=== PATIENT | female | born 1945 | race Caucasian/White ===

== ENCOUNTER 2023-10-15 21:46 | Emergency (ER) | payer OTHER ==
[2023-10-15] MEDS ORDERED: ALBUTEROL 2.5 MG/3 ML NEB SOL ONE (23:35)
[2023-10-15] MEDS ORDERED: IPRATROPIUM BROM 0.5MG/2.5ML ONE (23:36)
[2023-10-15] MEDS ORDERED: METHYLPREDNISOLONE 125 MG INJ ONE (23:36)
[2023-10-15 23:45] LABS: Absolute Lymphocytes (CBC) 1.2 K/uL (0.7-4.9); Absolute Monocytes 0.5 K/uL (0.1-1.3); Absolute Neutrophil 5.2 K/uL (1.8-8.0); Basophils % 0.3 % (0-1.3); Hematocrit 28.9 % (36.0-45.0); Hemoglobin 8.8 g/dL (12.0-15.0); MCH 21.8 pg (27.0-35.0); MCHC 30.4 g/dL (32.0-36.0); MCV 71.5 fL (80-100); MPV 8.5 fL (7.6-11.3); Monocytes % 6.8 % (3.3-12.3); Neutrophils % 74.9 % (41.7-73.7); Nucleated Red Blood Cells % 0.1 % (0-0); Platelets 178 thou/uL (152-406); RBC Red Blood Cell Count 4.04 M/uL (3.86-4.86); Red Cell Distribution Width 17.5 % (12.1-15.2)
[2023-10-15 23:56] LABS: PT Prothrombin Time 15.9 SECONDS (9.5-12.5); PTT, Activated Partial Thromb 32.3 SECONDS (24.3-36.9); Protime INR 1.46
[2023-10-16 00:05] LABS: ALT/SGPT 18 U/L (13-56); AST/SGOT 18 U/L (15-37); Albumin 3.1 g/dL (3.4-5.0); Albumin/Globulin Ratio 0.9 (1.1-1.8); Alkaline Phosphatase 65 U/L (45-117); Anion Gap 6.8 mEq/L (5.0-15.0); BUN Blood Urea Nitrogen 26 mg/dL (7-18); Bicarbonate 28 mEq/L (21-32); Bilirubin Total 0.3 mg/dL (0.2-1.0); Globulin 3.6 g/dL (2.3-3.5); Glomerular Filtration Rate 35 ml/min (=/>90); Glucose Level 172 mg/dL (74-106); Magnesium 2.2 mg/dL (1.6-2.4); NT PRO-BNP 775 pg/mL (<450); Potassium 4.8 mEq/L (3.5-5.1); Protein, Total 6.7 g/dL (6.4-8.2); Sodium Level 139 mEq/L (136-145); Troponin High Sensitivity 4.1 pg/mL (<58.9)
[2023-10-16 00:21] LABS: Bilirubin Direct < 0.1 mg/dL (0-0.2); Bilirubin Indirect, Calculated ND mg/dL (0.2-0.8)
[2023-10-16] MEDS ORDERED: NA CHLORIDE 0.9% 1,000 ML ONE (00:38)
--- NOTE | 2023-10-16 01:07 | ER ---
Nurse's Notes [facility] Name: Aleyda Cruz Age: 78 yrs Sex: Female : 1945 Arrival Date: 10/15/2023 Time: 21:46 Bed 14 Private MD: Diagnosis: Unspecified asthma with (acute) exacerbation;Nondisplaced fracture of lateral malleolus of right fibula Presentation: 10/14 22:05 Chief complaint: Patient states: I have had a persistent cough and feel like something jb4 is in my chest. I cannot catch my breath and I fell yesterday and hurt my right ankle. Coronavirus screen: At this time, the client does not indicate any symptoms associated with coronavirus-19. Ebola Screen: No symptoms or risks identified at this time. Initial Sepsis Screen: Does the patient meet any 2 criteria? No. Patient's initial sepsis screen is negative. Does the patient have a suspected source of infection? No. Patient's initial sepsis screen is negative. Risk Assessment: Do you want to hurt yourself or someone else? Patient reports no desire to harm self or others. Onset of symptoms was October 15, 2023. Transition of care: patient was not received from another setting of care. 22:05 Method Of Arrival: Ambulatory jb4 22:05 Acuity: EARNEST 3 jb4 Triage Assessment: 22:07 General: Appears in no apparent distress. uncomfortable, Behavior is calm, cooperative, jb4 appropriate for age. Pain: Complains of pain in right foot Pain does not radiate. Pain currently is 10 out of 10 on a pain scale. Neuro: Level of Consciousness is awake, alert, obeys commands, Oriented to person, place, time, situation. Cardiovascular: Patient's skin is warm and dry. Respiratory: Reports shortness of breath at rest Airway is patent Respiratory effort is even, unlabored, Respiratory pattern is regular, symmetrical, Onset: The symptoms/episode began/occurred gradually, the patient has mild shortness of breath. Derm: Skin is intact, Skin is pink, warm \T\ dry. Musculoskeletal: Circulation, motion, and sensation intact. Range of motion: intact in all extremities. Historical: - Allergies: 22:07 Aspirin; jb4 22:07 Sulfa (Sulfonamide Antibiotics); jb4 - PMHx: 22:07 Asthma; Hypertension; GERD; Hypothyroidism; jb4 - PSHx: 22:07 right arm (Hypothyroidism); head (Hypothyroidism); tubal (Hypothyroidism); bladder jb4 suspension (Hypothyroidism); - Immunization history:: Adult Immunizations up to date. - Infectious Disease History:: Denies. - Social history:: Smoking status: Patient denies any tobacco usage or history of. Screenin:44 [facility] [place] ED Fall Risk Assessment (Adult) History of falling in the last 3 months, me1 including since admission No falls in past 3 months (0 pts) Confusion or Disorientation No (0 pts) Intoxicated or Sedated No (0 pts) Impaired Gait No (0 pts) Mobility Assist Device Used No (0 pt) Altered Elimination No (0 pt) Score/Fall Risk Level 0 - 2 = Low Risk Maintained a safe environment, Hourly rounding (assess needs \T\ fall precautionary measures) done, Used ambulatory aids as needed (educated on \T\ assisted with). [facility] ED Fall Risk Assessment (Adult) History of falling in the last 3 months, including since admission. Abuse screen: Denies threats or abuse. Nutritional screening: No deficits noted. Tuberculosis screening: No symptoms or risk factors identified. Assessment: 23:44 General: Appears uncomfortable, well groomed, well developed, well nourished, Behavior me1 is calm, cooperative, appropriate for age, Reports I have had a persistent cough and feel like something is in my chest. I cannot catch my breath and I fell yesterday and hurt my right ankle. Pain: Complains of pain in right foot Pain does not radiate. Pain currently is 8 out of 10 on a pain scale. Quality of pain is described as sharp, Pain began suddenly, 1 day ago. Is continuous. Neuro: Level of Consciousness is awake, alert, obeys commands, Oriented to person, place, time, situation, Appropriate for age. Cardiovascular: Capillary refill < 3 seconds Patient's skin is warm and dry. Respiratory: Airway is patent Respiratory effort is even, unlabored, Respiratory pattern is regular, symmetrical. Respiratory: Reports cough that is persistent since 8 weeks Breath sounds with wheezes bilaterally. GI: No signs and/or symptoms were reported involving the gastrointestinal system. : No signs and/or symptoms were reported regarding the genitourinary system. EENT: No signs and/or symptoms were reported regarding the EENT system. Derm: Skin is intact, is healthy with good turgor, Skin is pink, warm \T\ dry. Musculoskeletal: Swelling present in right foot. Injury Description: fell yesterday from standing position and injured right foot/ankle. 23:51 Cardiovascular: Rhythm is atrial fibrillation. me1 Vital Signs: 22:05 BP 135 / 74; Pulse 92; Resp 20; Temp 98.3; Pulse Ox 96% on R/A; Weight 76.2 kg (R); jb4 Height 5 ft. 4 in. (R); Pain 10/10; 22:15 BP 124 / 94; Pulse 91; Resp 18; Pulse Ox 96% on R/A; me1 23:49 BP 140 / 85; Pulse 83; Resp 19; Pulse Ox 100% on R/A; me1 04 01:23 BP 143 / 86; Pulse 82; Resp 16; Temp 98; Pulse Ox 98% ; Pain 0/10; ha1 10/14 22:05 Body Mass Index 28.84 (76.20 kg, 162.56 cm) 4 10/14 22:05 Pain Scale: Adult 4 10/15 01:23 Pain Scale: Adult ha1 ED Course: 10/14 21:54 Patient arrived in ED. ra3 21:55 Lucila Mon PA-C is PHCP. sb4 21:55 Titi Urbina MD is Attending Physician. sb4 22:07 Triage completed. jb4 22:07 Arm band placed on right wrist. jb4 22:35 Elizabeth Lopez, JASMYN is Primary Nurse. me1 23:00 XRAY CXR (1 view) In Process Unspecified. EDMS 23:00 Ankle Right 3 View XRAY In Process Unspecified. EDMS 23:27 Initial lab(s) drawn, by az, sent to lab. First set of blood cultures drawn by az, me1 Second set of blood cultures drawn by az. 23:30 Inserted saline lock: 22 gauge in left antecubital area, using aseptic technique. me1 23:33 BMP Sent. me1 23:33 Blood Culture Adult (2) Sent. me1 23:33 CBC with Diff Sent. me1 23:33 Hepatic Function Sent. me1 23:33 Magnesium Sent. me1 23:33 NT PRO-BNP Sent. me1 23:33 PT-INR Sent. me1 23:33 Ptt, Activated Sent. me1 23:33 Troponin HS Sent. me1 23:44 Patient has correct armband on for positive identification. Bed in low position. Call me1 light in reach. Side rails up X2. Provided Education on: POC. Verbalized understanding. . 23:44 No provider procedures requiring assistance completed. me1 23:51 EKG done, by ED staff, reviewed by Lucila Mon PA-C. az1 10/15 01:07 Javon Parnell MD is Referral Physician. sb4 01:30 intact, bleeding controlled, No redness/swelling at site. Pressure dressing applied. ha1 Administered Medications: 10/14 23:43 Drug: MethylPrednisoLONE IVP 125 mg IVP once Route: IVP; Site: left antecubital; me1 23:50 Follow up: Response: No adverse reaction me1 23:43 Drug: DuoNeb Nebulize (3:1) (2.5 mg - 0.5 mg) 3 ml Nebulizer once Route: Nebulizer; me1 23:51 Follow up: Response: No adverse reaction; Wheezing diminished me1 10/15 00:48 Drug: NS 0.9% IV 1000 ml IV at 1 bolus Per protocol; 1000 mL bolus Route: IV; Rate: 1 ha1 bolus; Site: left antecubital; 01:32 Follow up: Response: No adverse reaction; IV Status: Completed infusion; IV Intake: ha1 1000ml Medication: 10/14 23:44 VIS not applicable for this client. az1 Intake: 10/15 01:32 IV: 1000ml; Total: 1000ml. 1 Outcome: 01:07 Discharge ordered by . sb4 01:30 Condition: stable ha1 01:30 Discharge instructions given to patient, family, Instructed on discharge instructions, follow up and referral plans. Demonstrated understanding of instructions, follow-up care, medications, Prescriptions given X 1, 01:31 Discharged to home via wheelchair, ha1 01:33 Patient left the ED. ha1 Signatures: Dispatcher [employer] EDToño Rodriguez RN RN [email or web address] Pippa Avalos RN RN [email or web address] Lucila Mon PA-C PA-C sb4 Elizabeth Lopez RN RN az1 Laine Collado ra3 Corrections: (The following items were deleted from the chart) 10/14 23:44 22:05 Chief complaint: Patient states: I have had a persistent cough and feel like me1 something is in my chest. I cannot catch my breath and I fell yesterday and hurt my right ankle. jb4
--- NOTE | 2023-10-16 01:08 | EDPHYS ---
Physician Documentation [facility] Name: Aleyda Cruz Age: 78 yrs Sex: Female : 1945 Arrival Date: 10/15/2023 Time: 21:46 Bed 14 Private MD: ED Physician Titi Urbina HPI: 10/14 22:37 This 78 yrs old Female presents to ER via Ambulatory with complaints of Shortness Of sb4 Breath, Fall Injury, Ankle Injury, Cough. 10/15 00:08 patient reports feeling short of breath for a few months now, ever since she was 1 week sb4 late receiving her asthma injection. states that at the time, she was given an IV steroid shot and put on antibiotics. reports initially improved but has slowly gotten worse- shortness of breath and wheezing despite inhalers. additionally, states that yesterday she twisted her right ankle and fell and now reports pain, swelling, and tenderness to the area. Historical: - Allergies: 10/14 22:07 Aspirin; jb4 22:07 Sulfa (Sulfonamide Antibiotics); jb4 - PMHx: 22:07 Asthma; Hypertension; GERD; Hypothyroidism; jb4 - PSHx: 22:07 right arm (Hypothyroidism); head (Hypothyroidism); tubal (Hypothyroidism); bladder jb4 suspension (Hypothyroidism); - Immunization history:: Adult Immunizations up to date. - Infectious Disease History:: Denies. - Social history:: Smoking status: Patient denies any tobacco usage or history of. ROS: 10/15 00:08 Constitutional: Negative for fever, chills, and weight loss, sb4 Respiratory: Positive for cough, dyspnea on exertion, shortness of breath, wheezing, MS/extremity: Positive for injury or acute deformity, pain, swelling, tenderness, of the right ankle and anterior aspect of right ankle, All other systems are negative, Exam: 00:08 Constitutional: This is a well developed, well nourished patient who is awake, alert, sb4 and in no acute distress. Head/Face: Normocephalic, atraumatic. Eyes: Extra-ocular motions intact. Periorbital areas with no swelling, redness, or edema. ENT: Mucous membranes moist. Cardiovascular: Regular rate and rhythm with a normal S1 and S2. Abdomen/GI: Soft, non-tender, no distension. Skin: Warm, dry with normal turgor. Normal color with no rashes, no lesions, and no evidence of cellulitis. Neuro: Awake and alert, GCS 15, oriented to person, place, time, and situation. Motor strength 5/5 in all extremities. Sensory grossly intact. 00:08 Respiratory: the patient does not display signs of respiratory distress, Respirations: normal, Breath sounds: wheezing: inspiratory expiratory that is moderate, is scattered, 00:08 Musculoskeletal/extremity: Extremities: noted in the right ankle: pain, swelling, tenderness, ROM: limited active range of motion due to pain, limited passive range of motion due to pain, Circulation is intact in all extremities. Sensation intact. Vital Signs: 10/14 22:05 BP 135 / 74; Pulse 92; Resp 20; Temp 98.3; Pulse Ox 96% on R/A; Weight 76.2 kg (R); jb4 Height 5 ft. 4 in. (R); Pain 10/10; 22:15 BP 124 / 94; Pulse 91; Resp 18; Pulse Ox 96% on R/A; me1 23:49 BP 140 / 85; Pulse 83; Resp 19; Pulse Ox 100% on R/A; me1 04 01:23 BP 143 / 86; Pulse 82; Resp 16; Temp 98; Pulse Ox 98% ; Pain 0/10; ha1 10/14 22:05 Body Mass Index 28.84 (76.20 kg, 162.56 cm) jb4 10/14 22:05 Pain Scale: Adult jb4 10/15 01:23 Pain Scale: Adult ha1 MDM: 10/14 22:05 Patient medically screened. sb4 10/15 01:06 Antibiotic administration: Not indicated, the patient's primary pathology is reactive sb4 airway disease. Data reviewed: vital signs, nurses notes, lab test result(s), EKG, radiologic studies, and as a result, I will discharge patient. Counseling: I had a detailed discussion with the patient and/or guardian regarding the historical points, exam findings, and any diagnostic results supporting the discharge/admit diagnosis, lab results, radiology results, the need for outpatient follow up, a surg tech, to return to the emergency department if symptoms worsen or persist or if there are any questions or concerns that arise at home. 10/14 22:26 Order name: BMP; Complete Time: 00:22 sb4 10/14 22:26 Order name: Blood Culture Adult (2) sb4 10/14 22:26 Order name: CBC with Diff; Complete Time: 23:58 sb4 10/14 22:26 Order name: Hepatic Function; Complete Time: 00:22 sb4 10/14 22:26 Order name: Magnesium; Complete Time: 00:22 sb4 10/14 22:26 Order name: NT PRO-BNP; Complete Time: 00:22 sb4 10/14 22:26 Order name: PT-INR; Complete Time: 23:58 sb4 10/14 22:26 Order name: Ptt, Activated; Complete Time: 23:58 sb4 10/14 22:26 Order name: Troponin HS; Complete Time: 00:22 sb4 10/14 22:26 Order name: XRAY CXR (1 view) sb4 10/14 22:26 Order name: Ankle Right 3 View XRAY sb4 10/14 22:26 Order name: EKG; Complete Time: 22:26 sb4 10/14 22:26 Order name: Cardiac monitoring; Complete Time: 00:15 sb4 10/14 22:26 Order name: EKG - Nurse/Tech; Complete Time: 23:52 sb4 10/14 22:26 Order name: IV Saline Lock; Complete Time: 23:33 sb4 10/14 22:26 Order name: Labs collected and sent; Complete Time: 23:33 sb4 10/14 22:26 Order name: O2 Per Protocol; Complete Time: 23:33 sb4 10/14 22:26 Order name: O2 Sat Monitoring; Complete Time: 23:33 sb4 10/15 00:48 Order name: Walking boot; Complete Time: 01:23 sb4 EC/18 23:53 Rate is 80 beats/min. Rhythm is irregularly irregular, A fib. QRS interval is normal at sb4 78 msec. QT interval is normal at 374 msec. No Q waves. T waves are Normal. No ST changes noted. Clinical impression: Atrial Fibrillation. Interpreted by me. Reviewed by me. Administered Medications: 23:43 Drug: MethylPrednisoLONE IVP 125 mg IVP once Route: IVP; Site: left antecubital; me1 23:50 Follow up: Response: No adverse reaction me1 23:43 Drug: DuoNeb Nebulize (3:1) (2.5 mg - 0.5 mg) 3 ml Nebulizer once Route: Nebulizer; wi1 23:51 Follow up: Response: No adverse reaction; Wheezing diminished me1 10/15 00:48 Drug: NS 0.9% IV 1000 ml IV at 1 bolus Per protocol; 1000 mL bolus Route: IV; Rate: 1 ha1 bolus; Site: left antecubital; 01:32 Follow up: Response: No adverse reaction; IV Status: Completed infusion; IV Intake: ha1 1000ml Disposition Summary: 10/16/23 01:07 Discharge Ordered Notes: Location: Home sb4 Problem: new sb4 Symptoms: have improved sb4 Condition: Stable sb4 Diagnosis - Unspecified asthma with (acute) exacerbation sb4 - Nondisplaced fracture of lateral malleolus of right fibula sb4 Followup: sb4 - With: Javon Parnell MD - When: As needed - Reason: Recheck today's complaints, Re-evaluation by your physician Discharge Instructions: - Discharge Summary Sheet sb4 - Asthma, Adult sb4 - Nondisplaced Fibular Ankle Fracture Treated With Immobilization sb4 Forms: - Thank You Letter sb4 - Patient Portal Instructions sb4 - Leadership Thank You Letter sb4 Prescriptions: - Prednisone 20 mg Oral Tablet - take 2 tablets ORAL route once daily for 5 days; 10 tablet; Refills: 0, Product sb4 Selection Permitted Addendum: 10/17/2023 06:07 I was immediately available for consultation during this patient's visit. I did not e c2 personally see the patient or discuss the patient with the PERNELL. . Signatures: Dispatcher [employer] Toño Garcia RN RN [email or web address] Pippa Avalos RN RN ha1 Lucila Mon PA-C PAGaudencio sb4 Elizabeth Lopez RN RN me1 Titi Urbina MD MD ec2 Corrections: (The following items were deleted from the chart) 10/14 22:26 22:26 BASIC METABOLIC PANEL+C.LAB.BRZ ordered. EDMS EDMS 22: 22:26 BLOOD CULTURE*+BA.LAB.BRZ ordered. EDMS EDMS 22: 22:26 CBC+H.LAB.BRZ ordered. EDMS EDMS 22: 22:26 HEPATIC FUNCTION+C.LAB.BRZ ordered. EDMS EDMS 22: MAGNESIUM+C.LAB.BRZ ordered. EDMS EDMS : 22:26 PROBNP+C.LAB.BRZ ordered. EDMS EDMS 22: PROTIME (+INR)+COAG.LAB.BRZ ordered. EDMS EDMS 22: PTT, ACTIVATED+COAG.LAB.BRZ ordered. EDMS EDMS 22: Troponin High Sensitivity+C.LAB.BRZ ordered. EDMS EDMS 22: Ankle Right 3 View+RAD.RAD.BRZ ordered. EDMS EDMS
[2023-10-16 09:21] VITALS: BP 143/86; TEMP 98; O2SAT 98
--- NOTE | 2023-10-17 20:01 | RAD REPORT ---
EXAM DESCRIPTION: RAD - Ankle Right 3 View - 10/15/2023 10:59 pm CLINICAL HISTORY: 78-year-old female with pain. TECHNIQUE: Three views RIGHT ankle were obtained in AP, lateral and oblique projections. COMPARISON: None. FINDINGS: Transverse fracture through the distal lateral malleolus. Ossicle medial to the lateral ma lleolus may reflect talar process fracture. The joint spaces are preserved. Bimalleolar soft tissue s welling. Plantar heel spur. Calcaneal enthesophyte. IMPRESSION: 1. Transverse fracture through the distal lateral malleolus. 2. Suspected lateral talar process fracture. 3. Ankle soft tissue swelling. Electronically signed by: Karla Ojeda MD 10/15/2023 11:17 PM CDT Due to temporary technical issues with the PACS/Fluency reporting system, reports are being signed by the in house radiologists without review as a courtesy to insure prompt reporting. The interpreting radiologist is fully responsible for the content of the report.
--- NOTE | 2023-10-17 20:12 | RAD REPORT ---
EXAM DESCRIPTION: RAD - Chest Single View - 10/15/2023 10:59 pm CLINICAL HISTORY: 8 years Female, SOB COMPARISON: Chest radiograph dated 01/23/2020 IMPRESSION: No focal lung consolidation. No pleural effusion. No pneumothorax. Cardiomegaly and vascular congestion. Remote fracture deformity of the right humerus Electronically signed by: Levi Stephens DO 10/15/2023 11:15 PM CDT Due to temporary technical issues with the PACS/Fluency reporting system, reports are being signed by the in house radiologists without review as a courtesy to insure prompt reporting. The interpreting radiologist is fully responsible for the content of the report.
== END 2023-10-16 01:33 | disposition home or self-care (01) ==
LOC: ER 21:46
DX: J45.901 Unspecified asthma with (acute) exacerbation (principal); S82.64XA Nondisplaced fracture of lateral malleolus of right fibula, initial encounter for closed fracture; Z88.2 Allergy status to sulfonamides; Z88.6 Allergy status to analgesic agent
CPT/HCPCS: 96361; 93005; 87040 ×2; 85025; 80048; 36415; 83735; 85610; 80076; 85730; 84484; 83880; 71045; 73610; 94640; 96374; 99285; J7613; J7644; J2919; J7030

== ENCOUNTER 2023-10-26 11:00 | Emergency (ER) | payer OTHER ==
[2023-10-26 11:46] LABS: Absolute Lymphocytes (CBC) 1.4 K/uL (0.7-4.9); Absolute Monocytes 0.9 K/uL (0.1-1.3); Absolute Neutrophil 8.9 K/uL (1.8-8.0); Basophils % 0.2 % (0-1.3); Hematocrit 30.4 % (36.0-45.0); Hemoglobin 9.1 g/dL (12.0-15.0); Lymphocytes % 12.3 % (15.3-44.8); MCH 21.4 pg (27.0-35.0); MCHC 29.8 g/dL (32.0-36.0); MCV 71.8 fL (80-100); MPV 7.9 fL (7.6-11.3); Monocytes % 7.7 % (3.3-12.3); Neutrophils % 79.8 % (41.7-73.7); Platelets 241 thou/uL (152-406); RBC Red Blood Cell Count 4.23 M/uL (3.86-4.86); Red Cell Distribution Width 18.4 % (12.1-15.2)
[2023-10-26 12:02] LABS: Albumin 2.9 g/dL (3.4-5.0); Albumin/Globulin Ratio 0.9 (1.1-1.8); Anion Gap 6.6 mEq/L (5.0-15.0); Bilirubin Total 0.6 mg/dL (0.2-1.0); Globulin 3.3 g/dL (2.3-3.5); Potassium 4.6 mEq/L (3.5-5.1); Protein, Total 6.2 g/dL (6.4-8.2)
[2023-10-26] MEDS ORDERED: NA CHLORIDE 0.9% 1,000 ML ONE (12:03)
[2023-10-26 12:27] LABS: Anisocytosis 2+; Blood Morphology Comment NOTED (NOT SEEN); Hypochromasia 2+; Platelet Estimate ADEQ; White Blood Cell Scan OK (OK)
--- NOTE | 2023-10-26 12:37 | RAD REPORT ---
EXAM DESCRIPTION: CTAbdomen Pelvis W Contrast - 10/26/2023 12:25 pm CLINICAL HISTORY: Abdominal pain. diarrhea COMPARISON: No comparisons TECHNIQUE: Venous phase CT imaging of the abdomen and pelvis was performed with 100 ml non-ionic IV contrast. All CT scans are performed using dose optimization technique as appropriate and may include automated exposure control or mA/KV adjustment according to patient size. FINDINGS: Mild linear atelectasis is present in the right lung base.Moderate hiatal hernia. The liver demonstrates small cysts. No aggressive liver lesion or biliary dilatation. The spleen panc reas adrenal glands and kidneys are within normal limits. There is a 4.6 cm duodenal diverticulum not ed. No bowel obstruction, free air, free fluid or abscess. Advanced sigmoid diverticulosis coli is presen t without diverticulitis. The appendix is normal. No evidence of significant lymphadenopathy. Mild lumbar degenerative changes. Prominent bone island seen right ischium. IMPRESSION: No acute intra-abdominal or pelvic finding. Moderate hiatal hernia. Significant sigmoid colon diverticulosis without diverticulitis findings.
--- NOTE | 2023-10-26 13:12 | ER ---
Nurse's Notes [facility] Name: Aleyda Cruz Age: 78 yrs Sex: Female : 1945 Arrival Date: 10/26/2023 Time: 11:00 Bed 3 Private MD: Diagnosis: Diarrhea, unspecified Presentation: 10/25 11:12 Chief complaint: Patient states: ate at [facility] on Thursday , started having iw abd pain and then diarrhea after that. Coronavirus screen: Client presents with at least one sign or symptom that may indicate coronavirus-19. Ebola Screen: Patient negative for fever greater than or equal to 101.5 degrees Fahrenheit, and additional compatible Ebola Virus Disease symptoms Patient denies exposure to infectious person. Patient denies travel to an Ebola-affected area in the 21 days before illness onset. No symptoms or risks identified at this time. Initial Sepsis Screen: Does the patient meet any 2 criteria? No. Patient's initial sepsis screen is negative. Does the patient have a suspected source of infection? No. Patient's initial sepsis screen is negative. Risk Assessment: Do you want to hurt yourself or someone else? Patient reports no desire to harm self or others. Onset of symptoms was October 21, 2023. 11:12 Method Of Arrival: Ambulatory iw 11:12 Acuity: EARNEST 3 iw Historical: - Allergies: 11:13 Aspirin; iw 11:13 Sulfa (Sulfonamide Antibiotics); iw - PMHx: 11:13 Hypertension; Hypothyroidism; GERD; Asthma; iw - PSHx: 11:13 head; bladder suspension; right arm; tubal; iw - Immunization history:: Adult Immunizations unknown. - Infectious Disease History:: Denies. - Family history:: not pertinent. - Hospitalizations: : No recent hospitalization is reported. - Social history:: Smoking status: Patient denies any tobacco usage or history of. Screenin:47 [facility] ED Fall Risk Assessment (Adult) History of falling in the last 3 months, ph including since admission No falls in past 3 months (0 pts) Confusion or Disorientation No (0 pts) Intoxicated or Sedated No (0 pts) Impaired Gait No (0 pts) Mobility Assist Device Used No (0 pt) Altered Elimination No (0 pt) Score/Fall Risk Level 0 - 2 = Low Risk Oriented to surroundings, Maintained a safe environment, Provided non-skid footwear, Hourly rounding (assess needs \T\ fall precautionary measures) done. Abuse screen: Denies threats or abuse. Denies injuries from another. Nutritional screening: No deficits noted. Tuberculosis screening: No symptoms or risk factors identified. Assessment: 12:30 General: Appears in no apparent distress. comfortable, well groomed, Behavior is calm, ph cooperative, appropriate for age. Pain: Denies pain. Neuro: Level of Consciousness is awake, alert, obeys commands, Oriented to person, place, time, situation. Cardiovascular: Capillary refill < 3 seconds in bilateral fingers Patient's skin is warm and dry. Respiratory: Airway is patent Respiratory effort is even, unlabored. GI: Abdomen is non-distended, Reports diarrhea, nausea. Derm: Skin is pink, warm \T\ dry. Vital Signs: 11:12 BP 138 / 74; Pulse 72; Resp 16; Temp 98.2; Pulse Ox 95% on R/A; iw 12:30 BP 139 / 72; Pulse 74; Resp 16; Pulse Ox 95% on R/A; ph 13:47 BP 128 / 78; Pulse 64; Resp 18; Temp 98; Pulse Ox 96% on R/A; ph ED Course: 11:03 Patient arrived in ED. rg4 11:05 Jluis Lopez MD is Attending Physician. rn 11:13 Triage completed. iw 11:13 Arm band placed on. iw 11:33 Candy Estes, RN is Primary Nurse. ph 11:51 CBC with Diff Sent. bc6 11:51 CMP Sent. bc6 11:51 Lipase Sent. bc6 11:51 Inserted saline lock: 22 gauge in left antecubital area, using aseptic technique. Blood bc6 collected. 12:26 CT Abd/Pelvis - IV Contrast Only In Process Unspecified. EDMS 14:00 Patient has correct armband on for positive identification. Bed in low position. Call ph light in reach. Side rails up X 1. Pulse ox on. NIBP on. Door closed. Noise minimized. Warm blanket given. 14:00 No provider procedures requiring assistance completed. IV discontinued, intact, ph bleeding controlled, No redness/swelling at site. Pressure dressing applied. Administered Medications: 12:16 Drug: NS 0.9% IV 1000 ml IV at 1000 ml once Route: IV; Rate: 1000 ml; Site: left ph antecubital; 13:59 Follow up: Response: No adverse reaction; IV Status: Completed infusion; IV Intake: ph 1000ml 13:47 Drug: Ciprofloxacin PO 500 mg PO once Route: PO; ph 13:59 Follow up: Response: No adverse reaction ph 13:47 Drug: metroNIDAZOLE PO 500 mg PO once Route: PO; ph 13:59 Follow up: Response: No adverse reaction ph Medication: 13:59 VIS not applicable for this client. ph Intake: 13:59 IV: 1000ml; Total: 1000ml. ph Outcome: 13:12 Discharge ordered by . rn 14:00 Discharged to home via wheelchair, with significant other, ph 14:00 Condition: good 14:00 Discharge instructions given to patient, significant other, Instructed on discharge instructions, follow up and referral plans. medication usage, Demonstrated understanding of instructions, follow-up care, medications, Prescriptions given X 2, 14:00 Patient left the ED. ph Signatures: Dispatcher [employer] EDDanya Gonzalez RN RN iw Nieto, Roman, MD MD rn Hall, Patricia, RN RN ph Garcia, Rubi rg4 Gia Crawley bc6
--- NOTE | 2023-10-26 13:12 | EDPHYS ---
Physician Documentation [facility] Name: Aleyda Cruz Age: 78 yrs Sex: Female : 1945 Arrival Date: 10/26/2023 Time: 11:00 Bed 3 Private MD: ED Physician Jluis Lopez HPI: 10/25 11:17 This 78 yrs old Female presents to ER via Ambulatory with complaints of Diarrhea. rn 11:17 The patient presents to the emergency department with diarrhea, abdominal pain. Onset: rn The symptoms/episode began/occurred 5 day(s) ago. Possible causes: unknown. The symptoms are aggravated by nothing. The symptoms are alleviated by nothing. Severity of symptoms: At their worst the symptoms were moderate in the emergency department the symptoms are unchanged. The patient has not experienced similar symptoms in the past. The patient has not recently seen a physician. Patient reports 5 days of nonbloody diarrhea associated with abdominal pain across the lower abdomen. No fever or chills. No blood in stool. Patient states started shortly after eating out, but was 5 days ago. Symptoms not improving. No vomiting or nausea.. Historical: - Allergies: 11:13 Aspirin; iw 11:13 Sulfa (Sulfonamide Antibiotics); iw - PMHx: 11:13 Hypertension; Hypothyroidism; GERD; Asthma; iw - PSHx: 11:13 head; bladder suspension; right arm; tubal; iw - Immunization history:: Adult Immunizations unknown. - Infectious Disease History:: Denies. - Family history:: not pertinent. - Hospitalizations: : No recent hospitalization is reported. - Social history:: Smoking status: Patient denies any tobacco usage or history of. ROS: 11:17 Constitutional: Negative for fever, chills, and weight loss, Cardiovascular: Negative rn for chest pain, palpitations, and edema, Respiratory: Negative for shortness of breath, cough, wheezing, and pleuritic chest pain, Abdomen/GI: Positive for abdominal pain and diarrhea Back: Negative for injury and pain, MS/Extremity: Negative for injury and deformity, Neuro: Positive for generalized weakness Exam: 11:17 Constitutional: This is a well developed, well nourished patient who is awake, alert, rn and in no acute distress. Cardiovascular: Regular rate and rhythm. No pulse deficits. Abdomen/GI: Soft, no focal abdominal tenderness. No distention. MS/ Extremity: Pulses equal, no cyanosis. Neuro: Awake and alert, GCS 15 Vital Signs: 11:12 BP 138 / 74; Pulse 72; Resp 16; Temp 98.2; Pulse Ox 95% on R/A; iw 12:30 BP 139 / 72; Pulse 74; Resp 16; Pulse Ox 95% on R/A; ph 13:47 BP 128 / 78; Pulse 64; Resp 18; Temp 98; Pulse Ox 96% on R/A; ph MDM: 11:05 Patient medically screened. rn 13:10 Differential diagnosis: Nonspecific abd pain, gastritis, cholecystitis, pancreatitis, rn appendicitis, diverticulitis, viral gastroenteritis, gastroenteritis. Data reviewed: vital signs, nurses notes, lab test result(s), radiologic studies, CT scan, and as a result, I will discharge patient. 13:11 Counseling: I had a detailed discussion with the patient and/or guardian regarding the rn historical points, exam findings, and any diagnostic results supporting the discharge/admit diagnosis, lab results, radiology results, the need for outpatient follow up, to return to the emergency department if symptoms worsen or persist or if there are any questions or concerns that arise at home. Special discussion: Based on the patient's Hx, exam, and Dx evaluation, there is no indication for emergent surgery or inpatient Tx. It is understood by the patient/guardian that if the Sx's persist or worsen they need to return immediately for re-evaluation. I discussed with the patient/guardian in detail that at this point there is no indication for admission to the hospital. It is understood, however, that if the symptoms persist or worsen the patient needs to return immediately for re-evaluation. 10/25 11:05 Order name: CBC with Diff; Complete Time: 12: rn 10/25 11:05 Order name: CMP; Complete Time: 12:21 rn 10/25 11:05 Order name: Lipase; Complete Time: 12:21 rn 10/25 11:55 Order name: CBC Smear Scan; Complete Time: 12:29 EDMS 10/25 11:05 Order name: CT Abd/Pelvis - IV Contrast Only; Complete Time: 12:49 rn 10/25 11:05 Order name: IV Saline Lock; Complete Time: 11: rn 10/25 11:05 Order name: Labs collected and sent; Complete Time: 11:51 rn Administered Medications: 12:16 Drug: NS 0.9% IV 1000 ml IV at 1000 ml once Route: IV; Rate: 1000 ml; Site: left ph antecubital; 13:59 Follow up: Response: No adverse reaction; IV Status: Completed infusion; IV Intake: ph 1000ml 13:47 Drug: Ciprofloxacin PO 500 mg PO once Route: PO; ph 13:59 Follow up: Response: No adverse reaction ph 13:47 Drug: metroNIDAZOLE PO 500 mg PO once Route: PO; ph 13:59 Follow up: Response: No adverse reaction ph Disposition Summary: 10/26/23 13:12 Discharge Ordered Notes: Location: Home rn Problem: new rn Symptoms: have improved rn Condition: Stable rn Diagnosis - Diarrhea, unspecified rn Followup: rn - With: Private Physician - When: As needed - Reason: Recheck today's complaints, Re-evaluation by your physician Discharge Instructions: - Discharge Summary Sheet rn - Abdominal Pain, Adult rn - Diarrhea, Adult rn Forms: - Medication Reconciliation Form rn - Antibiotic rn acute care - Prescription Opioid Use rn - Patient Portal Instructions rn - Leadership Thank You Letter rn Prescriptions: - Cipro 500 mg Oral tablet - take 1 tablet ORAL route every 12 hours for 7 days; 14 tablet; Refills: 0, rn Product Selection Permitted - Flagyl 500 mg Oral Tablet - take 1 tablet ORAL route every 12 hours for 7 days; 14 tablet; Refills: 0, rn Product Selection Permitted Signatures: Dispatcher [employer] Danya Servin RN RN iw Nieto, Roman, MD MD rn Hall, Patricia, RN RN ph Corrections: (The following items were deleted from the chart) 11:06 11:06 Abdomen Pelvis W Con+CT.RAD.BRZ ordered. ED EDMS
[2023-10-26] MEDS ORDERED: CIPROFLOXACIN HCL 500 MG TAB ONE (13:27)
[2023-10-26] MEDS ORDERED: metroNIDAZOLE 500 MG TABLET ONE (13:27)
[2023-10-26 14:29] VITALS: BP 128/78; TEMP 98; O2SAT 96
== END 2023-10-26 14:00 | disposition home or self-care (01) ==
LOC: ER 11:00
DX: R19.7 Diarrhea, unspecified (principal); Z88.2 Allergy status to sulfonamides; Z88.6 Allergy status to analgesic agent
CPT/HCPCS: 85025; 36415; 83690; 80053; 74177; Q9967; J7030; 96360; 96361; 99284

== ENCOUNTER 2025-04-26 11:23 | Emergency (ER) | payer OTHER ==
--- NOTE | 2025-04-26 12:07 | RAD REPORT ---
EXAM: CT brain without contrast HISTORY: TRAUMA COMPARISON: None TECHNIQUE: Multiple contiguous axial images were obtained and a CT of the brain without contrast. Sag ittal and coronal reformats were performed. One or more of the following dose reduction techniques were used: Automated exposure control, adjust ment of the mA and/or kV according to patient size, and/or iterative reconstruction. FINDINGS: No evidence of hydrocephalus, intracranial hemorrhage, or extra-axial fluid collection. The brain is normal in morphology. No evidence of midline shift or areas of brain edema. The calvarium is intact. The visualized paranasal sinuses and mastoid air cells are essentially clear . Soft tissue swelling about the nose. EXAM: CT of the cervical spine without contrast HISTORY: Neck pain, injury TRAUMA TECHNIQUE: Multiple contiguous axial images were obtained in a CT of the cervical spine without contr ast. Sagittal and coronal reformats were performed. FINDINGS: The vertebral bodies demonstrate normal height and alignment. No evidence of acute fracture or subluxation.. No degenerative changes are present. No prevertebral soft tissue swelling is seen. The posterior facets are well aligned. Normal alignment of the skull base with the cervical spine is seen. The lung apices are unremarkable. COMBINED IMPRESSION: No evidence of acute intracranial abnormality. No evidence of acute osseous abnormality of the cervical spine.
--- NOTE | 2025-04-26 12:09 | RAD REPORT ---
EXAMINATION: CT MAXILLOFACIAL WITHOUT CONTRAST CLINICAL INDICATION: FALL TECHNIQUE: Axial images were obtained through the facial bones and orbits without intravenous contras t. Sagittal and coronal reconstructions were created from the data. One or more of the following dose reduction techniques were used: Automated exposure control, adjustment of the mA and/or kV accor ding to patient size, and/or iterative reconstruction. Unless otherwise specified, incidental findings do not require dedicated imaging follow-up. COMPARISON: No prior exam. FINDINGS: SOFT TISSUE: Soft tissue swelling about the nose. BONES: Slight cortical irregularity of the right nasal bone is questionable fracture. Elsewhere no ev idence of facial bone fracture. ORBITS: The globes are intact. No intraorbital hemorrhage or mass. SINUSES: The visualized paranasal sinuses and mastoid air cells are essentially clear. IMPRESSION: Soft tissue swelling about the nose with possible minimal nasal bone fracture present.
--- NOTE | 2025-04-26 12:18 | RAD REPORT ---
EXAMINATION: XR LEFT KNEE CLINICAL INDICATION: PAIN TECHNIQUE: Multiple projections of the left knee were obtained. COMPARISON: No prior exam. FINDINGS: Soft tissue swelling is seen anteriorly. Mild arthritic changes. No acute fracture or disl ocation.
--- NOTE | 2025-04-26 12:18 | RAD REPORT ---
EXAM: XR RIGHT HAND HISTORY: Pain. PAIN COMPARISON: None TECHNIQUE: Multiple projections of the right hand submitted. FINDINGS: Advanced osteopenia. There is deformity involving the proximal phalanx of the fifth finger likely chronic. Short fifth metacarpal is seen. No acute fracture appreciated.
[2025-04-26 12:31] LABS: Absolute Lymphocytes (CBC) 1.3 K/uL (0.7-4.9); Hematocrit 37.3 % (36.0-45.0); Hemoglobin 12.4 g/dL (12.0-15.0); MCH 30.3 pg (27.0-35.0); MCHC 33.3 g/dL (32.0-36.0); MCV 91.0 fL (80-100); MPV 8.5 fL (7.6-11.3); Nucleated RBC Absolute Count 0.0 (0-0); Nucleated Red Blood Cells % 0.0 % (0-0); RBC Red Blood Cell Count 4.09 M/uL (3.86-4.86); White Blood Count 9.50 thou/uL (4.3-10.9)
[2025-04-26 12:51] LABS: Anion Gap 12.3 mEq/L (5.0-15.0); BUN Blood Urea Nitrogen 59.0 mg/dL (7-18); Glucose Level 164.0 mg/dL (74-106)
[2025-04-26 12:54] LABS: Potassium 5.3 mEq/L (3.5-5.1)
--- NOTE | 2025-04-26 13:47 | EDPHYS ---
Physician Documentation [facility] Name: Aleyda Cruz Age: 79 yrs Sex: Female : 1945 Arrival Date: 04/26/2025 Time: 11:23 Bed 4 Private MD: ED Physician Amadou Mak HPI: 04/26 11:32 This 79 yrs old Female presents to ER via Unassigned with complaints of Fall Injury. ms3 11:32 79-year-old female presents to the emergency department via [facility] after ms3 having a mechanical fall while in the parking lot of the rehabilitation. Patient denies loss of consciousness. EMS notes they administered 4 mg Zofran and 50 mcg of fentanyl to patient. Patient is having right hand and left knee discomfort. Patient denies loss of consciousness. Patient endorses taking blood thinners. Historical: - Allergies: 11:35 Aspirin; cm10 11:35 Sulfa (Sulfonamide Antibiotics); cm10 - Home Meds: 11:35 Eliquis oral [Active]; cm10 - PMHx: 11:35 Asthma; GERD; Hypertension; Hypothyroidism; Atrial fibrillation; cm10 - PSHx: 11:35 bladder suspension; head; right arm; tubal; cm10 - Immunization history:: Adult Immunizations up to date. - Infectious Disease History:: Denies. - Social history:: Smoking status: unknown. ROS: 11:32 Constitutional: Negative for fever, and chills. Cardiovascular: Negative for chest ms3 pain, and palpitations. Respiratory: Negative for shortness of breath, cough, wheezing, and pleuritic chest pain, Abdomen/GI: Negative for abdominal pain, nausea, vomiting, diarrhea, and constipation, MS/Extremity: Negative for injury and deformity, 11:32 Skin: Positive for abrasion(s), ecchymosis, Exam: 11:32 Constitutional: This is a well developed, well nourished patient who is awake, alert, ms3 and in no acute distress. Respiratory: Lungs have equal breath sounds bilaterally, clear to auscultation and percussion. No rales, rhonchi or wheezes noted. No increased work of breathing, no retractions or nasal flaring. Abdomen/GI: Soft, non-tender, with normal bowel sounds. No distension or tympany. No guarding or rebound. No evidence of tenderness throughout. 11:32 Head/face: Noted is abrasion(s), that are mild, of the chin, contusion, of the nose, 11:32 ENT: Nose: Nasal septum: is midline, no septal hematoma appreciated, 11:32 Skin: abrasion to left knee, ecchymosis right hand, abrasion to chin, laceration inner lip. 11:32 Cardiovascular: Rate: normal, Rhythm: irregularly irregular, Pulses: no pulse deficits ms3 are appreciated, Vital Signs: 11:30 BP 113 / 72; Pulse 73; Resp 16; Temp 97.1(TE); Pulse Ox 98% on 2 lpm NC; Weight 76.2 kg cm10 (R); Height 5 ft. 4 in. (R); Pain 8/10; 13:30 BP 137 / 73; Pulse 73; Resp 16; Pulse Ox 95% ; db 14:17 BP 118 / 58; Pulse 94; Resp 17; Temp 97.7(O); Pulse Ox 95% on R/A; cm10 11:30 Body Mass Index 28.84 (76.20 kg, 162.56 cm) cm10 11:30 Pain Scale: Adult cm10 Romeo Coma Score: 12:27 Eye Response: spontaneous(4). Verbal Response: oriented(5). Motor Response: obeys zm commands(6). Total: 15. Trauma Score (Adult): 12:27 Eye Response: spontaneous(1); Verbal Response: oriented(1); Motor Response: obeys zm commands(2); Systolic BP: > 89 mm Hg(4); Respiratory Rate: 10 to 29 per min(4); Romeo Score: 15; Trauma Score: 12 MDM: 11:31 Medical Screening Exam initiated ms3 11:32 Differential diagnosis: abrasion, closed head injury, contusion, fracture, laceration, ms3 sprain, strain. 18:23 Data reviewed: vital signs, nurses notes, lab test result(s), radiologic studies, CT ms3 scan, plain films, and as a result, I will discharge patient. Independent interpretation of the following test(s) in the Emergency Department CT Scan: My interpretation is CT head without IV contrast images reviewed by me do not reveal intracranial hemorrhage. Counseling: I had a detailed discussion with the patient and/or guardian regarding the historical points, exam findings, and any diagnostic results supporting the discharge/admit diagnosis, lab results, radiology results, the need for outpatient follow up, to return to the emergency department if symptoms worsen or persist or if there are any questions or concerns that arise at home. Special discussion: I discussed with the patient/guardian in detail that at this point there is no indication for admission to the hospital. It is understood, however, that if the symptoms persist or worsen the patient needs to return immediately for re-evaluation. ED course: Discussed labs and imaging revealing possible nasal bone fracture with patient. Patient to follow-up with primary care physician 2 to 3 days. All questions were answered. Return precautions were discussed include worsening symptoms, or any other concerns. Patient states her tetanus is up-to-date. On reevaluation patient is alert and oriented x 4, no apparent distress, nontoxic-appearing, speaking full sentences. 04/26 11:32 Order name: Basic Metabolic Panel; Complete Time: 13:17 ms3 04/26 11:32 Order name: CBC with Diff; Complete Time: 12:54 ms3 04/26 11:32 Order name: Type And Screen; Complete Time: 13:42 ms3 04/26 11:32 Order name: CT Head C Spine; Complete Time: 12:11 ms3 04/26 11:32 Order name: Hand Right 3 View XRAY; Complete Time: 12:27 ms3 04/26 11:32 Order name: Knee Left 3 View XRAY; Complete Time: 12:27 ms3 04/26 11:47 Order name: Facial Bones W/ Mpr; Complete Time: 12:11 EDMS 04/26 11:32 Order name: Labs collected and sent; Complete Time: 12:22 ms3 Administered Medications: No medications were administered Disposition Summary: 04/26/25 13:47 Discharge Ordered Notes: Location: Home ms3 Condition: Stable ms3 Diagnosis - Abrasion of lip ms3 - Mouth laceration ms3 - Fracture of nasal bones, initial encounter for closed fracture ms3 Followup: ms3 - With: Private Physician - When: 2 - 3 days - Reason: Recheck today's complaints Discharge Instructions: - Discharge Summary Sheet ms3 - Nasal Fracture ms3 - Mouth Laceration, [id number] ms3 - Abrasion, [id number] ms3 Forms: - Medication Reconciliation Form ms3 - Antibiotic Education ms3 - Prescription Opioid Use ms3 - Patient Portal Instructions ms3 - Leadership Thank You Letter ms3 Prescriptions: - Peridex 0.12 % Mucous Membrane Mouthwash - swish 15 milliliter BUCCAL route after meals and before bedtime; 600 ms3 milliliter; Refills: 0, Product Selection Permitted - Tramadol 50 mg Oral Tablet - take 1 tablet ORAL route every 8 hours as needed; 12 tablet; Refills: 0, ms3 Product Selection Permitted Signatures: Dispatcher [employer] EDMS Amadou Mak DO DO ms3 Guerita Kingston, RN RN cm10 Corrections: (The following items were deleted from the chart) 11:32 11:32 Head C Spine MPR Wo Con+CT.RAD.BRZ ordered. EDMS EDMS 11:32 11:32 Hand Right 3 View+RAD.RAD.BRZ ordered. EDMS EDMS 11:33 11:33 Knee Left 3 View+RAD.RAD.BRZ ordered. EDMS EDMS 18:26 11:32 Constitutional: This is a well developed, well nourished patient who is awake, ms3 alert, and in no acute distress. Cardiovascular: Regular rate and rhythm with a normal S1 and S2. No gallops, murmurs, or rubs. Normal PMI, no JVD. No pulse deficits. Respiratory: Lungs have equal breath sounds bilaterally, clear to auscultation and percussion. No rales, rhonchi or wheezes noted. No increased work of breathing, no retractions or nasal flaring. Abdomen/GI: Soft, non-tender, with normal bowel sounds. No distension or tympany. No guarding or rebound. No evidence of tenderness throughout. ms3
--- NOTE | 2025-04-26 13:47 | ER ---
Nurse's Notes [facility] Name: Aleyda Cruz Age: 79 yrs Sex: Female : 1945 Arrival Date: 04/26/2025 Time: 11:23 Bed 4 Private MD: Diagnosis: Abrasion of lip;Mouth laceration;Fracture of nasal bones, initial encounter for closed fracture Presentation: 04/26 11:30 Chief complaint: EMS states: TONED OUT DUE TO PATIENT HAVING A FALL. PT TRIPPED AND cm10 FELL. PT ARRIVED WITH C-COLLAR. PT HAS LACERATION TO LOWER LIP, HEMATOMA TO RIGHT HAND, ABRASION TO LEFT KNEE. NO LOC. PT ON BLOOD THINNERS (ELIQUIS). PT COMPLAINING OF DIZZINESS. PT WITH BRUISING TO NOSE. Coronavirus screen: Client denies travel out of the [place] in the last 14 days. Ebola Screen: Patient denies travel to an Ebola-affected area in the 21 days before illness onset. Initial Sepsis Screen: Does the patient meet any 2 criteria? No. Patient's initial sepsis screen is negative. Does the patient have a suspected source of infection? No. Patient's initial sepsis screen is negative. Risk Assessment: Do you want to hurt yourself or someone else? Patient reports no desire to harm self or others. Onset of symptoms. Care prior to arrival: Cervical collar in place. Medication(s) given: zofran 4 mg, Fentanyl 50mcg IV initiated. 22 GA, in the left hand. 11:30 Acuity: EARNEST 2 cm10 11:30 Method Of Arrival: EMS: [facility] cm10 Triage Assessment: 11:36 General: Appears uncomfortable, Behavior is calm, cooperative, appropriate for age. cm10 Neuro: No deficits noted. Level of Consciousness is awake, alert, obeys commands, Oriented to person, place, time, situation, Appropriate for age. Respiratory: No deficits noted. Airway is patent Respiratory effort is even, unlabored, Respiratory pattern is regular, symmetrical. Injury Description: Abrasion sustained to left knee Hematoma to right hand, laceration to lower lip. Historical: - Allergies: 11:35 Aspirin; cm10 11:35 Sulfa (Sulfonamide Antibiotics); cm10 - Home Meds: 11:35 Eliquis oral [Active]; cm10 - PMHx: 11:35 Asthma; GERD; Hypertension; Hypothyroidism; Atrial fibrillation; cm10 - PSHx: 11:35 bladder suspension; head; right arm; tubal; cm10 - Immunization history:: Adult Immunizations up to date. - Infectious Disease History:: Denies. - Social history:: Smoking status: unknown. Screenin:27 [facility] ED Fall Risk Assessment (Adult) History of falling in the last 3 months, zm including since admission Yes- single mechanical fall (1 pt) Confusion or Disorientation No (0 pts) Intoxicated or Sedated No (0 pts) Impaired Gait No (0 pts) Mobility Assist Device Used No (0 pt) Altered Elimination No (0 pt) Score/Fall Risk Level 0 - 2 = Low Risk Oriented to surroundings, Maintained a safe environment, Educated pt \T\ family on fall prevention, incl call for assistance when getting out of bed, Assessed \T\ reinforced patient's understanding of fall precautions, Hourly rounding (assess needs \T\ fall precautionary measures) done, Used ambulatory aids as needed (educated on \T\ assisted with), Used gait belt as appropriate. Abuse screen: Denies threats or abuse. Denies injuries from another. Nutritional screening: No deficits noted. Tuberculosis screening: No symptoms or risk factors identified. Assessment: 11:45 Reassessment: see triage assessment. zm 12:45 Reassessment: Patient appears in no apparent distress at this time. Patient and/or zm family updated on plan of care and expected duration. Pain level reassessed. Patient is alert, oriented x 3, equal unlabored respirations, skin warm/dry/pink. Pain: Denies pain. 13:25 Reassessment: PT ASSISTED TO RESTROOM VIA WHEELCHAIR. db 13:48 Reassessment: Patient appears in no apparent distress at this time. No changes from zm previously documented assessment. Patient and/or family updated on plan of care and expected duration. Pain level reassessed. Patient is alert, oriented x 3, equal unlabored respirations, skin warm/dry/pink. Patient states feeling better. Patient states symptoms have improved. Vital Signs: 11:30 BP 113 / 72; Pulse 73; Resp 16; Temp 97.1(TE); Pulse Ox 98% on 2 lpm NC; Weight 76.2 kg cm10 (R); Height 5 ft. 4 in. (R); Pain 8/10; 13:30 BP 137 / 73; Pulse 73; Resp 16; Pulse Ox 95% ; db 14:17 BP 118 / 58; Pulse 94; Resp 17; Temp 97.7(O); Pulse Ox 95% on R/A; cm10 11:30 Body Mass Index 28.84 (76.20 kg, 162.56 cm) cm10 11:30 Pain Scale: Adult cm10 Deanne Coma Score: 12:27 Eye Response: spontaneous(4). Verbal Response: oriented(5). Motor Response: obeys zm commands(6). Total: 15. Trauma Score (Adult): 12:27 Eye Response: spontaneous(1); Verbal Response: oriented(1); Motor Response: obeys zm commands(2); Systolic BP: > 89 mm Hg(4); Respiratory Rate: 10 to 29 per min(4); [place] Score: 15; Trauma Score: 12 ED Course: 11:27 Patient arrived in ED. bd 11:28 Amadou Mak DO is Attending Physician. ms3 11:34 Taniya Kingston, RN is Primary Nurse. zm 11:35 Triage completed. cm10 11:35 Arm band placed on right wrist. Patient placed in an exam room, on a stretcher. cm10 11:52 CT Head C Spine In Process Unspecified. EDMS 11:53 Facial Bones W/ Mpr In Process Unspecified. EDMS 12:09 X-ray completed. Portable x-ray completed in exam room. Patient tolerated procedure mh1 well. 12:12 Hand Right 3 View XRAY In Process Unspecified. EDMS 12:12 Knee Left 3 View XRAY In Process Unspecified. EDMS 12:22 Basic Metabolic Panel Sent. zm 12:23 CBC with Diff Sent. zm 12:23 Type And Screen Sent. zm 12:31 Patient has correct armband on for positive identification. Bed in low position. Call zm light in reach. Side rails up X2. Adult w/ patient. Provided Education on: call light use. Client placed on continuous cardiac and pulse oximetry monitoring. NIBP monitoring applied. Door closed. Noise minimized. Lights dimmed. Warm blanket given. Verbal reassurance given. 13:52 No provider procedures requiring assistance completed. IV discontinued, intact, db bleeding controlled, No redness/swelling at site. Administered Medications: No medications were administered Medication: 13:47 VIS not applicable for this client. zm Outcome: 13:47 Discharge ordered by . ms3 13:52 Discharged to home ambulatory, via wheelchair, with family, cm10 13:52 Condition: stable 13:52 Discharge instructions given to patient, family, Instructed on discharge instructions, follow up and referral plans. 13:52 Prescriptions given X 2, cm10 13:54 Patient left the ED. db 14:19 Patient left the ED. cm10 Signatures: Dispatcher [employer] EDMS Saniya Lloyd Martha 1 Amadou Mak DO DO ms3 Taniya Kingston, RN RN zm Lillie Rome, RN RN db Guerita Kingston RN RN cm10 Corrections: (The following items were deleted from the chart) 14:18 14:17 BP 118 / 50; Pulse 94bpm; Resp 17bpm; Pulse Ox 95% RA; Temp 97.7F Oral; cm10 cm10 14:18 13:52 Discharged to home ambulatory, with family, db cm10 14:18 13:52 Prescriptions given X 1, db cm10
[2025-04-26 13:58] VITALS: O2SAT 95
[2025-04-26 14:50] VITALS: BP 118/58; TEMP 97.7
== END 2025-04-26 14:19 | disposition home or self-care (01) ==
LOC: ER 11:23
DX: S01.512A Laceration without foreign body of oral cavity, initial encounter (principal); S02.2XXA Fracture of nasal bones, initial encounter for closed fracture; S60.511A Abrasion of right hand, initial encounter; S80.212A Abrasion, left knee, initial encounter; W18.30XA Fall on same level, unspecified, initial encounter; Y92.481 Parking lot as the place of occurrence of the external cause; I48.91 Unspecified atrial fibrillation; Z79.01 Long term (current) use of anticoagulants
CPT/HCPCS: 36415; 70450; 70486; 72125; 76377; 80048; 85025; 86850; 86900; 86901; 99284